=== PATIENT | male | born 1990 | race Caucasian/White ===

== ENCOUNTER 2019-04-12 20:47 | Emergency (ER) | payer OTHER ==
[2019-04-12] MEDS ORDERED: Bacitracin/Neomycin/Polymyxin B Oint 0.9 GM U/D Packet TOP ONE (21:59)
--- NOTE | 2019-04-12 23:01 | EDM.PDOC ---
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 which broke and acid broke his finger was caught with the Advil rail and slammed into the other end causing a laceration of the right fourth finger which is semicircular about 2 cm at this time this was repaired using a digital block and 7 interrupted sutures we will send him home on antibiotics Augmentin 875 end Toradol 10 mg for pain control Onset: Today, Sudden Duration: Hour(s):, Improving Location: Reports: Upper Extremity, Right Quality: Reports: Ache, Throbbing Severity: Moderate Improves with: Reports: Rest Worsens with: Reports: Movement Context: Reports: Trauma Associated Symptoms: Reports: No Other Symptoms Treatments 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 Social & Family History - Tobacco Use Smoking Status *Q: Never Smoker Review of Systems - Review of Systems Review Of Systems: See Below Constitutional: Reports: No Symptoms Eyes: Reports: No Symptoms Ears: Reports: No Symptoms Nose: Reports: No Symptoms Mouth/Throat: Reports: No Symptoms Respiratory: Reports: No Symptoms Cardiovascular: Reports: No Symptoms GI/Abdominal: Reports: No Symptoms Genitourinary: Reports: No Symptoms Musculoskeletal: Reports: No Symptoms Skin: Reports: No Symptoms Neurological: Reports: No Symptoms Psychiatric: Reports: No Symptoms ED EXAM, GENERAL - Physical Exam Exam: See Below Exam Limited By: No Limitations General Appearance: Alert, WD/WN, No Apparent Distress Ears: Normal External Exam, Normal Canal, Hearing Grossly Normal, Normal TMs Ear Exam: Bilateral Ear: Auricle Normal, Canal Normal, TM normal Nose: Normal Inspection, Normal Mucosa, No Blood Throat/Mouth: Normal Inspection, Normal Lips, Normal Teeth, Normal Gums, Normal Oropharynx, Normal Voice, No Airway Compromise Head: Atraumatic, Normocephalic Neck: Normal Inspection, Supple, Non-Tender, Full Range of Motion Respiratory/Chest: No Respiratory Distress, Lungs Clear, Normal Breath Sounds, No Accessory Muscle Use, Chest Non-Tender Cardiovascular: Normal Peripheral Pulses, Regular Rate, Rhythm, No Edema, No Gallop, No JVD, No Murmur, No Rub GI/Abdominal: Normal Bowel Sounds, Soft, Non-Tender, No Organomegaly, No Distention, No Abnormal Bruit, No Mass (Male) Exam: Deferred Rectal (Males) Exam: Deferred Back Exam: Normal Inspection, Full Range of Motion, NT Extremities: Other Neurological: Alert, Oriented, CN II-XII Intact, Normal Cognition, Normal Gait, Normal Reflexes, No Motor/Sensory Deficits Psychiatric: Normal Affect, Normal Mood Skin Exam: Warm, Dry, Intact, Normal Color, No Rash Lymphatic: No Adenopathy ED TRAUMA EXTREMITY PROCEDURES - Laceration/Wound Repair Right Middle Anterior Medial Distal Digit - 4th (Ring) Lac/Wound Length In cm: 2 Appearance: Subcutaneous, Clean Distal NVT: Neuro & Vascular Intact Anesthetic Type: Digital Local Anesthesia - Lidocaine (Xylocaine): 1% Plain Local Anesthetic Volume: 5cc Skin Prep: Chlorhexidine (Hibiciens) Exploration/Debridement/Repair: Wound Explored, Minimal Debridement Closed With: Sutures Suture Size: 4-0 # of Sutures: 7 Suture Type: Nylon Course - Vital Signs Last Recorded V/S: Last Vital Signs Temp 98.4 F 04/12/19 20:51 Pulse 82 04/12/19 22:52 Resp 17 04/12/19 20:51 BP 105/84 04/12/19 22:52 Pulse Ox 100 04/12/19 20:51 - Orders/Labs/Meds Orders: Active Orders 24 hr Category Date Time Status Fingers Fourth Digit Rt F8 [CR] Stat Exams 04/12/19 21:45 Ordered Meds: Medications Discontinued Medications Generic Name Dose Route Start Last Admin Trade Name Freq PRN Reason Stop Dose Admin Lidocaine HCl 10 ml 04/12/19 21:58 04/12/19 22:05 Xylocaine-Mpf 1% INJECT 04/12/19 21:59 10 ml ONETIME ONE Administration Neomycin/Polymyxin/Bacitracin 1 each 04/12/19 21:59 04/12/19 22:33 Triple Antibiotic Oint TOP 04/12/19 22:00 1 each ONETIME ONE Administration Departure - Departure Time of Disposition: 23:01 Disposition: Home, Self-Care 01 Condition: Fair Clinical Impression: Laceration - Discharge Information *PRESCRIPTION DRUG MONITORING PROGRAM REVIEWED*: No *COPY OF PRESCRIPTION DRUG MONITORING REPORT IN PATIENT FLORIAN: No Referrals: PCP,None [Primary Care Provider] - Care Plan Goals: Patient is to return for suture removal in 10 days if any signs of infection like redness pus increased pain return to ER or to clinic for evaluation patient is to take Augmentin 875 for 10 days we also send him home on Toradol 10 mg 1 tablet every 86 hours for pain not to exceed 20 tablets in 5 days. - My Orders Last 24 Hours: My Active Orders 04/12/19 21:45 Fingers Fourth Digit Rt F8 [CR] Stat - Assessment/Plan Last 24 Hours: My Active Orders 04/12/19 21:45 Fingers Fourth Digit Rt F8 [CR] Stat
== END 2019-04-12 23:27 | disposition home or self-care (01) ==
LOC: LL.ED 20:47
DX: S61.214A Laceration without foreign body of right ring finger without damage to nail, initial encounter (principal); W23.1XXA Caught, crushed, jammed, or pinched between stationary objects, initial encounter
CPT/HCPCS: 12001; 12011; 73140-F8; 99283-25; J2001